=== PATIENT | female | born 1955 | race African-American/Black ===

== ENCOUNTER 2017-07-09 10:10 | Inpatient (IN) | payer OTHER ==
[2017-07-05 12:08] VITALS: BMI 47.9
[~2017-07-09 10:10] MED LIST: LIDOCAINE HCL 1%, 10 MG/ML (20ML VIAL) NR ONE; ceFAZolin SODIUM 1 GM VIAL IVPB ONE
[2017-07-09 10:50] LABS: URINE APPEARANCE CLEAR; URINE BILIRUBIN NEGATIVE (NEGATIVE); URINE BLOOD NEGATIVE (NEGATIVE); URINE COLOR LTYELLOW; URINE GLUCOSE (UA) NEGATIVE (NEGATIVE); URINE KETONE NEGATIVE (NEGATIVE); URINE NITRITE NEGATIVE (NEGATIVE); URINE PROTEIN NEGATIVE (NEGATIVE); URINE UROBILINOGEN NEGATIVE mg/dL (0.2-1.0)
[2017-07-09 12:37] LABS: URINE LEUK ESTERASE 2+ (NEGATIVE)
[2017-07-09] MEDS ORDERED: PROPOFOL 20 ML ONE ×2 (13:08)
[2017-07-09] MEDS ORDERED: ceFAZolin SODIUM 1 GM VIAL IVPB ONE (13:22)
[2017-07-09] MEDS ORDERED: LIDOCAINE HCL 1%, 10 MG/ML (20ML VIAL) NR ONE ×2 (13:23)
[2017-07-09] MEDS ORDERED: ceFAZolin SODIUM 1 GM VIAL ONE (13:32)
[2017-07-09] MEDS ORDERED: ONDANSETRON 4 MG/2 ML VIAL IVPUSH PRN (13:37)
[2017-07-09] MEDS ORDERED: ACETAMINOPHEN 1000 MG/100 ML VIAL (NON FORMULARY) IVPB PRN (13:39)
[2017-07-09] MEDS ORDERED: LACTATED RINGERS SOLUTION 1,000 ML IV SCH (13:45)
[2017-07-09] MEDS ORDERED: ACETAMINOPHEN WITH CODEINE 300MG/30MG TABLET PO PRN ×2 (15:13→15:34)
[2017-07-09] MEDS ORDERED: ACETAMINOPHEN 500 MG TABLET (FP) PO PRN (15:14)
[2017-07-09] MEDS ORDERED: ACETAMINOPHEN INJECTION 100 ML IVPB ONE (15:29)
--- NOTE | 2017-07-09 17:11 | OP ---
DATE OF OPERATION: 07/09/2017 PREOPERATIVE DIAGNOSIS: Right breast ductal carcinoma in situ. POSTOPERATIVE DIAGNOSIS: Right breast ductal carcinoma in situ. PROCEDURE: Right breast wire localized lumpectomy with primary reconstruction. SURGEON: Cady Billy MD ANESTHESIA: General. ESTIMATED BLOOD LOSS: Minimal. COMPLICATIONS: None. This was a sterile procedure. INDICATION FOR PROCEDURE: Patient presented with screening mammogram noting an area of microcalcifications in the upper outer right breast. She underwent a stereotactic biopsy that showed ductal carcinoma in situ. My recommendation was a wire- localized lumpectomy to encompass the entire wide area of calcifications, encompassing the right breast 9 o'clock to 11 o'clock location of the right breast. The procedure was discussed with her and all of her questions answered. PROCEDURE IN DETAIL: The patient was brought to [facility] in [place], taken to breast imaging where a wire was used to localize the wide area of calcifications by the radiologist. She was then brought up to the operating room, and after the induction of general anesthesia and IV antibiotics, the right breast was prepped and draped in the usual sterile fashion. A radial incision was made in the right breast 9 o'clock to 10 o'clock location, and both the wires were used as guides to get down to the interest. On the post wire localization mammogram, there appeared to be calcifications beyond the wire superiorly as well as laterally and posteriorly. So, I did a wide excision of the entire area in the 9 o'clock to 10 o'clock location of the right breast and sent as a right breast lumpectomy, tagged with a long stitch lateral/short stitch superior for specimen radiograph. The first specimen radiograph showed that there were several calcifications within the lumpectomy, and there was a question of ones at the lateral superior edge. Therefore, I re-sent the specimen for another x-ray which again noted to have some calcifications at the edge. However, I took a new superior margin and tagged with a long stitch lateral/short stitch superior and sent that to Pathology for permanent section. Hemostasis was assured with electrocautery. There was a wide defect, 10 cm x 4 cm, after the lumpectomy. Therefore, superior, medial, and lateral flaps were raised. A tissue transfer procedure was performed, and the parenchyma was approximated in 2 layers of interrupted 2-0 Vicryl. Skin approximated with interrupted 3-0 Vicryl running and 4-0 Biosyn. A sterile dressing with Tegaderm and 4 x 4's applied. She tolerated the procedure well, was taken to recovery in good condition after being extubated on the operating room table. Estee [id number] MTDD
[2017-07-09] MEDS: oxyCODONE HCL 5 MG TABLET PO PRN ×2 (18:00→23:48)
[2017-07-10 03:18] VITALS: TEMP 99.2
[2017-07-10 06:13] VITALS: BP 109/53; PULSE 79
[2017-07-10] MEDS: oxyCODONE HCL 5 MG TABLET PO PRN ×2 (07:21→09:09)
--- NOTE | 2017-07-16 15:23 | PATH ---
Surgical Pathology Report Patient Name: [facility]. Rec. #: [id number] /Age/Gender: 1955 (Age: 61) / F Account: [id number] Location: [address] [place] [address] Taken: 07/09/2017 Received: 07/10/2017 Reported: 07/16/2017 Physicians: Cady Billy M.D. Specimen(s) Received A: RIGHT BREAST LUMPECTOMY B: RIGHT BREAST NEW SUPERIOR MARGIN LUMPECTOMY Clinical History DCIS Final Diagnosis A. BREAST, RIGHT, LUMPECTOMY: DUCTAL CARCINOMA IN SITU (DCIS), CRIBRIFORM, PAPILLARY AND MICROPAPILLARY TYPE (NUCLEAR GRADE 2), FOCALLY ASSOCIATED WITH MICROCALCIFICATIONS, MEASURING 3 MM IN GREATEST MICROSCOPIC DIMENSION, PRESENT IN THIRTEEN OF NINETEEN (13/19) SLIDES. PRIOR BIOPSY SITE CHANGES PRESENT. SURGICAL MARGINS ARE UNINVOLVED BY DCIS. CLOSEST MARGIN IS SUPERIOR/LATERAL MARGIN AT 2MM. THE REMAINDER OF THE MARGINS ARE >3MM FROM DCIS. SEE SPECIMEN B FOR FINAL MARGINS. REMAINING BREAST TISSUE SHOW PROLIFERATIVE FIBROCYSTIC CHANGES INCLUDING MICROCYSTS, APOCRINE METAPLASIA, STROMAL FIBROSIS, USUAL AND ATYPICAL DUCTAL HYPERPLASIA, AND ADENOSIS. ONE BENIGN LYMPH NODE (0/1). PATHOLOGIC STAGE: pTis (DCIS) pNx SEE DCIS CASE SUMMARY BELOW. B. BREAST, RIGHT, NEW SUPERIOR MARGIN, EXCISION: BENIGN BREAST TISSUE. ONE BENIGN LYMPH NODE (0/1). Comments DCIS of Breast: Surgical Pathology Cancer Case Summary Based on AJCC/UICC TNM, 7th edition Procedure _X_ Excision with image-guided localization Lymph Node Sampling _X_ Lymph nodes present within the breast specimen ( intramammary lymph nodes) Specimen Laterality _X_ Right Estimated size (extent) of DCIS (greatest dimension microscopic dimension): at least 3 mm and: Number of blocks with DCIS: 13 Number of blocks examined: 19 Nuclear Grade _X_ Grade II (intermediate) Necrosis _X_ Present, focal (small foci) Microcalcifications _X_ Present in both DCIS and non-neoplastic tissue Margins _X_ Margin(s) uninvolved by DCIS Distance from closest margin: 2 mm (Superior/lateral margin) Lymph Nodes Total number of nodes examined (sentinel and nonsentinel): _2__ Number of sentinel nodes examined: _0__ TNM Descriptors Primary Tumor (pT) _X_ pTis (DCIS): Ductal carcinoma in situ Biomarker Studies Results of ER and NJ studies performed on block " A3 " at [facility] are as follows: ER (clone [id number] mouse monoclonal antibody by [employer]): >99 % nuclear staining with strong intensity (Positive). NJ (clone16 mouse monoclonal antibody by [employer]) : >95 % nuclear staining with strong intensity (Positive). Positive and negative controls (internal if applicable) show appropriate results. Formalin fixation and cold ischemic times are within current ASCO/CAP recommendations for ER, NJ and Her2 testing. Electronically Signed Moraima Cartagena M.D. Gross Description A. Received fresh on an AccuGrid, labeled "right breast lumpectomy," is a 10.0 x 7.0 x 3.5 cm. rueda-yellow, irregular, portion of fibroadipose tissue with a needle localization wire present. There is a short suture marking the superior aspect and a long suture marking the lateral aspect, per the surgeon. There is no skin present. The specimen is inked as follows: superior and lateral blue; inferior green; medial yellow; anterior red; deep black. The specimen is serially sectioned from lateral to medial. Sectioning reveals a focus of hemorrhage abutting the superior and anterior margins. The remaining breast parenchyma displays multifocal white fibrous tissue. No definitive masses are identified. There is a 0.5 cm greatest dimension possible lymph node at the lateral aspect of the specimen. [employer] sections are submitted in 19 cassettes as follows: 1-5-focus of hemorrhage (each with superior and anterior margins); 7-30-kcmxfze tissue sequentially submitted from medial to lateral (6-9-each with superior and inferior margins; 10-14-each with inferior margin); 15-additional anterior margin; 16-deep margin; 17-medial margin; 18-lateral margin; 19-one whole bisected possible lymph node. Time to formalin fixation: not given Total formalin fixation time: Approximately 27 hours B. Received in formalin labeled "right breast lumpectomy new superior margin," is a 6.2 x 5.3 x 1.8 cm irregular portion of fibroadipose tissue with a short suture marking the superior aspect and a long suture marking the lateral aspect of the specimen, per the surgeon. There is no needle localization wire present. There is no skin present. The specimen is inked as follows: Superior and lateral blue; medial yellow; anterior red; deep black. The specimen is serially sectioned from lateral to medial. The specimen is entirely and sequentially submitted from lateral to medial in 17 cassettes (one bisected section each in cassettes 2/3, /, /, 05/08, 07/10, 09/11). 07/10/201707/10/2017
== END 2017-07-10 11:15 | disposition home or self-care (01) | DRG 363 ==
LOC: JSAMEDAYSX 10:10 → EDSTATUS 12:00 → J6S 17:45
PROVIDERS: ADMIT Surgery; ATTEND Surgery
PROC: 0HHT0NZ Insertion of Tissue Expander into Right Breast, Open Approach (ICD-10-PCS; 2017-07-09)
PROC: 0HBT0ZZ Excision of Right Breast, Open Approach (ICD-10-PCS; principal; 2017-07-09 12:00)
DX: D05.11 Intraductal carcinoma in situ of right breast (principal); E78.00 Pure hypercholesterolemia, unspecified; F20.9 Schizophrenia, unspecified; E66.01 Morbid (severe) obesity due to excess calories; Z68.42 Body mass index [BMI] 45.0-49.9, adult
CPT/HCPCS: 19281; 81003; 81015; 88307-TC; 94760